=== PATIENT | male | born 1960 | race Caucasian/White ===

== ENCOUNTER → 2019-11-21 08:43 | Outpatient (BNVA) | payer OTHER, SELFPAY | PROVIDERS: Family Provider Family Medicine; Visit Provider Family Medicine | DX: I10 Essential (primary) hypertension (principal); E78.5 Hyperlipidemia, unspecified; E11.9 Type 2 diabetes mellitus without complications | CPT/HCPCS: 80053; 80061; 82728; 83036; 83540; 83550; 85025 ==

== ENCOUNTER → 2020-05-19 08:40 | Outpatient (BNVA) | payer OTHER, SELFPAY | PROVIDERS: Family Provider Family Medicine; Visit Provider Family Medicine | DX: E11.9 Type 2 diabetes mellitus without complications (principal); R11.10 Vomiting, unspecified; I10 Essential (primary) hypertension; E78.5 Hyperlipidemia, unspecified; R11.2 Nausea with vomiting, unspecified; F17.220 Nicotine dependence, chewing tobacco, uncomplicated | CPT/HCPCS: 80053; 83036; 83690 ==

== ENCOUNTER → 2020-11-12 09:04 | Outpatient (BNVA) | payer OTHER, SELFPAY | PROVIDERS: Family Provider Family Medicine; Visit Provider Family Medicine | DX: I10 Essential (primary) hypertension (principal); E11.9 Type 2 diabetes mellitus without complications; E78.5 Hyperlipidemia, unspecified; R35.1 Nocturia; R10.9 Unspecified abdominal pain; R10.30 Lower abdominal pain, unspecified; F17.220 Nicotine dependence, chewing tobacco, uncomplicated | CPT/HCPCS: 80053; 80061; 82043; 83036; 84153; 85025 ==

== ENCOUNTER 2020-11-16 07:47 | Outpatient (CLI) | payer OTHER, SELFPAY ==
[2020-11-16] MEDS: iohexol 300 mg/mL 50 mL Btl PO (08:40)
--- NOTE | 2020-11-16 09:30 | CT_ITS ---
WS: [id number] CT ABDOMEN AND PELVIS WITH CONTRAST HISTORY: lower abdominal pain TECHNIQUE: Imaging performed of the abdomen and pelvis with IV contrast. Single phase imaging of the abdomen. Coronal and sagittal reformats are submitted. All CT scans at [facility] use at least one of these dose optimization techniques: automated exposure control; mA and/or kV adjustment per patient size (includes targeted exams where dose is matched to clinical indication); or iterativ e reconstruction. IV CONTRAST: Omnipaque 300; 95 mL IV. Oral contrast: Yes. DLP: 1739.43 mGy.cm COMPARISON: None available. Lower thorax: Lung bases are clear. Heart is normal size. No hiatal hernia. Liver/biliary system: Mild hepatic steatosis. No enlargement or bile duct dilatation. Gallbladder: Normal. No gallstones or wall thickening. No pericholecystic fluid. Pancreas: Normal. Spleen: Normal. Adrenal glands: Normal. Right kidney: Normal. Left kidney: Normal. Aorta: Normal. Lymphadenopathy: None. Free fluid: None. GI tract: Mild diffuse constipation. Normal appendix. No significant diverticular disease. No wall th ickening or inflammation. Abdominal wall: Unremarkable abdominal wall. No hernia. Pelvis: Minimally prominent prostate gland encroaching into the posterior bladder. No free fluid or a denopathy. Inguinal canals are patent bilaterally containing fat only. Bones: Degenerative disc disease is moderate at L5-S1. CT/CT abdomen pelvis w con* [id number] IMPRESSION: 1. No acute abdominal or pelvic abnormalities are identified. 2. Normal appendix. No diverticulitis. 3. No renal obstruction or calcifications.
[2020-11-16] MEDS: iohexol 300 mg/mL 100 mL Btl IV (09:40)
== END 2020-11-16 07:48 | disposition home or self-care (01) ==
LOC: RAD 07:52
PROVIDERS: PCP Family Medicine; Visit Provider Family Medicine
DX: R10.9 Unspecified abdominal pain (principal)
CPT/HCPCS: 74177

== ENCOUNTER → 2021-06-25 09:52 | Outpatient (BNVA) | payer OTHER, SELFPAY | PROVIDERS: PCP Family Medicine; Visit Provider Family Medicine | DX: E11.9 Type 2 diabetes mellitus without complications (principal); L57.0 Actinic keratosis; E78.5 Hyperlipidemia, unspecified; R35.1 Nocturia; R10.9 Unspecified abdominal pain; I10 Essential (primary) hypertension; F17.220 Nicotine dependence, chewing tobacco, uncomplicated | CPT/HCPCS: 80053; 83036 ==

== ENCOUNTER → 2021-12-03 09:09 | Outpatient (BNVA) | payer OTHER, SELFPAY | PROVIDERS: PCP Family Medicine; Visit Provider Family Medicine | DX: I10 Essential (primary) hypertension (principal); E78.5 Hyperlipidemia, unspecified; E11.9 Type 2 diabetes mellitus without complications; F17.220 Nicotine dependence, chewing tobacco, uncomplicated; L72.0 Epidermal cyst; Z68.33 Body mass index [BMI] 33.0-33.9, adult | CPT/HCPCS: 80053; 80061; 82043; 83036; 85025 ==

== ENCOUNTER → 2022-10-07 12:11 | Outpatient (BNVA) | payer OTHER, SELFPAY | PROVIDERS: PCP Family Medicine; Visit Provider Family Medicine | DX: I10 Essential (primary) hypertension (principal); E78.5 Hyperlipidemia, unspecified; E11.9 Type 2 diabetes mellitus without complications; R35.1 Nocturia | CPT/HCPCS: 80053; 80061; 82043; 83036; 84153; 85025 ==